=== PATIENT | male | born 1945 | race Caucasian/White ===

== ENCOUNTER 2017-12-14 10:49 | Emergency (ER) | payer MEDICARE, OTHER ==
--- NOTE | 2017-12-14 11:51 | ED PDOC ---
HPI: Hypertension/Hypotension Time Seen by Provider: 12/14/17 11:10 Chief Complaint (Nursing): High Blood Pressure Chief Complaint (Provider): High Blood Pressure History Per: Patient History/Exam Limitations: no limitations Onset/Duration Of Symptoms: Days (x 2) Current Symptoms Are (Timing): Still Present Quality Of Symptoms: Asymptomatic Exacerbating Factor(s): Pos: Recent Change In Medication Additional Complaint(s): 72 year old male with history of prostate cancer and HTN presents to the ED with high blood pressure since last night. Patient reports that he recently switched to new blood pressure medication, Losartan, and claims that his bp went too low so he took two pills of his original medication as well as aspirin and a garlic pill. At home, his bp was 210/118. He is already scheduled for a cardiac stress test and had a echocardiogram done, but does not have the results. He denies chest pain, difficulty breathing and headache. PMD: Dr. Parth TOSCANO Past Medical History Reviewed: Historical Data, Nursing Documentation, Vital Signs Vital Signs: Last Vital Signs Temp 98.0 F 12/14/17 10:55 Pulse 85 12/14/17 11:11 Resp 16 12/14/17 11:11 BP 159/101 H 12/14/17 11:11 Pulse Ox 99 12/14/17 10:55 - Medical History PMH: HTN, Hypercholesterolemia - Surgical History Surgical History: No Surg Hx - Family History Family History: States: Unknown Family Hx - Home Medications Home Medications: Ambulatory Orders Medication Instructions Recorded Losartan [Cozaar] 50 mg PO Q12 10/09/15 Aspirin [Ecotrin] 81 mg PO HS 12/14/17 Clopidogrel [Plavix] 75 mg PO DAILY 12/14/17 Garlic [Odor Free Garlic-X] 1 tab PO DAILY 12/14/17 Milk Thistle [Milk Thistle] 1 cap PO DAILY 12/14/17 Multivitamin [Multi-Vitamin Daily] 1 tab PO DAILY 12/14/17 [place]-3/Dha/Epa/Fish Oil [[place]-3 1,200 mg PO HS 12/14/17 Fish Oil 1,200 mg Sfgl] [place]-3/Dha/Epa/Fish Oil [[place]-3 2,400 mg PO DAILY 12/14/17 Fish Oil 1,200 mg Sfgl] Zolpidem [Ambien] 10 mg PO HS PRN 12/14/17 - Allergies Allergies/Adverse Reactions: Allergies Allergy/AdvReac Type Severity Reaction Status Date / Time No Known Allergies Allergy Verified 10/09/15 06:23 Review of Systems ROS Statement: Except As Marked, All Systems Reviewed And Found Negative Constitutional: Positive for: Other (high blood pressure ) Cardiovascular: Negative for: Chest Pain Respiratory: Negative for: Shortness of Breath Neurological: Negative for: Headache Physical Exam - Reviewed Nursing Documentation Reviewed: Yes Vital Signs Reviewed: Yes - Physical Exam Appears: Positive for: Non-toxic, No Acute Distress Head Exam: Positive for: ATRAUMATIC, NORMAL INSPECTION, NORMOCEPHALIC Skin: Positive for: Normal Color, Warm, Dry Eye Exam: Positive for: Normal appearance Neck: Positive for: Normal, Painless ROM, Supple Cardiovascular/Chest: Positive for: Regular Rate, Rhythm. Negative for: Murmur Respiratory: Positive for: Normal Breath Sounds. Negative for: Respiratory Distress Gastrointestinal/Abdominal: Positive for: Normal Exam, Soft Extremity: Positive for: Normal ROM. Negative for: Deformity Neurologic/Psych: Positive for: Alert, Oriented. Negative for: Motor/Sensory Deficits - Laboratory Results Result Diagrams: 12/14/17 12:00 12/14/17 12:00 - ECG O2 Sat by Pulse Oximetry: 99 (RA) Pulse Ox Interpretation: Normal Medical Decision Making Medical Decision Making: Time: 11:40 Impression: high blood pressure Initial Plan: --CBC --CMP --Clonidine .[address] Leal was alerted. After clonidine, he has transiently low blood pressure. Time: 14:53 --NS IV 1,000 mls/hr Time: 15:33 --Patient reports improvement of symptoms. Time; 16:37 --Patient request copy of labs before he leaves. He is stable and will be discharged home. p stable with normal gait. Return to the ED if symptoms persist or worsen. Follow up with Dr. Leal in 1-2 days. discusced plan with dr leal, he agrees. Scribe Attestation: Documented by Cyndee Perkins, acting as a scribe for Ravindra Murdock MD Provider Scribe Attestation: All medical record entries made by the Scribe were at my direction and personally dictated by me. I have reviewed the chart and agree that the record accurately reflects my personal performance of the history, physical exam, medical decision making, and the department course for this patient. I have also personally directed, reviewed, and agree with the discharge instructions and disposition. Disposition - Clinical Impression Clinical Impression: Hypertension - Patient ED Disposition Is Patient to be Admitted: No Counseled Patient/Family Regarding: Diagnosis, Need For Followup - Disposition Disposition: Routine/Home Disposition Time: 12:45 Condition: IMPROVED Additional Instructions: follow up with Dr Leal in 1-2 days return to the ED with any worsening or concerning symptoms Instructions: High Blood Pressure (DC) Forms: [employer] (Urdu)
[2017-12-14 12:19] LABS: BASO % 0.5 % (0.0-2.0); EOS % 0.2 % (0.0-4.0); HEMOGLOBIN 15.4 g/dL (12.0-18.0); LYMPH % 15.4 % (20.0-40.0); MEAN CORPUSCULAR HEMOGLOBIN 31.6 pg (27.0-31.0); MEAN CORPUSCULAR HGB CONC 34.7 g/dL (33.0-37.0); MEAN PLATELET VOLUME 8.5 fl (7.2-11.7); MONO # 0.6 K/uL (0.0-0.8); MONO % 8.9 % (0.0-10.0); NEUT # 4.8 K/uL (1.8-7.0); NRBC % 0.1 % (0.0-0.0); RBC 4.86 Mil/uL (4.40-5.90); RED CELL DISTRIBUTION WIDTH 13.5 % (11.5-14.5); WHITE BLOOD COUNT 6.4 K/uL (4.8-10.8)
[2017-12-14 12:21] LABS: ALB/GLOB RATIO 1.3 (1.0-2.1); ALT/SGPT 50 U/L (21-72); AST/SGOT 29 U/L (17-59); BLOOD UREA NITROGEN 18 mg/dl (9-20); CALCIUM 9.2 mg/dL (8.4-10.2); GFR AFRICAN-AMERICAN > 60; GFR NON-AFRICAN AMERICAN 59
[2017-12-14 13:07] VITALS: RESP 18
[2017-12-14] MEDS: Sodium Chloride 0.9% 1,000 ML IV STA ×2 (14:20→15:50)
[2017-12-14] MEDS ORDERED: Sodium Chloride 0.9% 1,000 ML IV STA (14:43)
[2017-12-14 15:33] VITALS: O2SAT 99
[2017-12-14 16:57] VITALS: BP 133/74; PULSE 71; TEMP 97.9
== END 2017-12-14 16:57 | disposition home or self-care (01) ==
LOC: H.ER 10:49
DX: I10 Essential (primary) hypertension (principal); E78.00 Pure hypercholesterolemia, unspecified; Z79.82 Long term (current) use of aspirin; Z85.46 Personal history of malignant neoplasm of prostate
CPT/HCPCS: 80053; 85025; 96360; 96361; 99285; J7030

== ENCOUNTER 2018-01-14 08:43 | Emergency (ER) | payer MEDICARE, OTHER ==
[2018-01-14 08:49] VITALS: BMI 19.4
[2018-01-14] MEDS ORDERED: Sodium Chloride 0.9% 500 ML IV STA (09:19)
--- NOTE | 2018-01-14 09:25 | ED PDOC ---
HPI: Hypertension/Hypotension Time Seen by Provider: 01/14/18 09:04 Chief Complaint (Nursing): High Blood Pressure Chief Complaint (Provider): High blood pressure History Per: Patient History/Exam Limitations: no limitations Onset/Duration Of Symptoms: Days (today) Additional Complaint(s): Pt. states his bp was high at home so he took his usual losartan and took 1 pill of amlodipine. He takes amlodipine as needed for high bp. He takes xanax 2x a day, but has not taken it today. Pt. denies any symptoms with the high blood pressure. No chest pain, dyspnea, weakness, dizziness, numbness, tingles , fever, cough, nausea, vomit, abd pain. No headache or dizziness. Got worried about bp being high, so he came in. Past Medical History Reviewed: Nursing Documentation, Vital Signs Vital Signs: Last Vital Signs Temp 98.1 F 01/14/18 08:49 Pulse 128 H 01/14/18 08:49 Resp 17 01/14/18 08:49 BP 140/96 H 01/14/18 08:49 Pulse Ox - Medical History PMH: HTN - Family History Family History: States: Unknown Family Hx - Living Arrangements Living Arrangements: With Family - Social History Alcohol: None Drugs: Denies - Home Medications Home Medications: Ambulatory Orders Medication Instructions Recorded Losartan [Cozaar] 50 mg PO Q12 10/09/15 Aspirin [Ecotrin] 81 mg PO HS 12/14/17 Clopidogrel [Plavix] 75 mg PO DAILY 12/14/17 Garlic [Odor Free Garlic-X] 1 tab PO DAILY 12/14/17 Milk Thistle [Milk Thistle] 1 cap PO DAILY 12/14/17 Multivitamin [Multi-Vitamin Daily] 1 tab PO DAILY 12/14/17 [place]-3/Dha/Epa/Fish Oil [[place]-3 1,200 mg PO HS 12/14/17 Fish Oil 1,200 mg Sfgl] [place]-3/Dha/Epa/Fish Oil [[place]-3 2,400 mg PO DAILY 12/14/17 Fish Oil 1,200 mg Sfgl] Zolpidem [Ambien] 10 mg PO HS PRN 12/14/17 - Allergies Allergies/Adverse Reactions: Allergies Allergy/AdvReac Type Severity Reaction Status Date / Time No Known Allergies Allergy Verified 10/09/15 06:23 Review of Systems ROS Statement: Except As Marked, All Systems Reviewed And Found Negative Physical Exam - Reviewed Nursing Documentation Reviewed: Yes Vital Signs Reviewed: Yes - Physical Exam Appears: Positive for: Well, Non-toxic, No Acute Distress Head Exam: Positive for: ATRAUMATIC, NORMAL INSPECTION, NORMOCEPHALIC Skin: Positive for: Normal Color, Warm, DRY Eye Exam: Positive for: EOMI, Normal appearance, PERRL ENT: Positive for: Normal ENT Inspection Neck: Positive for: Normal, Painless ROM Cardiovascular/Chest: Positive for: Regular Rate, Rhythm Respiratory: Positive for: CNT, Normal Breath Sounds Gastrointestinal/Abdominal: Positive for: Normal Exam, Soft. Negative for: Tenderness Back: Positive for: Normal Inspection. Negative for: L CVA Tenderness, R CVA Tenderness Extremity: Positive for: Normal ROM. Negative for: Tenderness, Pedal Edema Neurologic/Psych: Positive for: Alert, grinder operator II-XII, Oriented. Negative for: Motor/Sensory Deficits, Facial Droop - Laboratory Results Result Diagrams: 01/14/18 10:31 01/14/18 10:31 Interpretation Of Abn Labs: no acute - ECG ECG: Positive for: Interpreted By Me, Viewed By Me ECG Rhythm: Positive for: Normal QRS, Normal ST Segment, Sinus Rhythm - Progress ED Course And Treament: 926: BP improved in triage. Pt. tachy, likely related to not taking xanax. Will give xanax and monitor pt. 1234: Stable. AAOx3. Pain free. Tolerated PO. FU with pcp. BP maintained. HR 80. Disposition - Clinical Impression Clinical Impression: HTN (hypertension) - Patient ED Disposition Is Patient to be Admitted: Yes Counseled Patient/Family Regarding: Studies Performed, Diagnosis, Need For Followup - Disposition Referrals: [facility] [Outside] - 01/17/18 Disposition: Routine/Home Disposition Time: 12:35 Condition: STABLE Additional Instructions: Return if not better in 3 days. Instructions: High Blood Pressure in Adults Forms: [facility] (Somali)
[2018-01-14 09:27] VITALS: RESP 19; TEMP 97; O2SAT 98
[2018-01-14 10:36] LABS: BASO % 0.4 % (0.0-2.0); EOS % 0.2 % (0.0-4.0); HEMOGLOBIN 16.9 g/dL (12.0-18.0); LYMPH # 0.9 K/uL (1.0-4.3); LYMPH % 12.3 % (20.0-40.0); MEAN CELL VOLUME 92.1 fl (80.0-94.0); MEAN CORPUSCULAR HEMOGLOBIN 31.1 pg (27.0-31.0); MEAN CORPUSCULAR HGB CONC 33.7 g/dL (33.0-37.0); MEAN PLATELET VOLUME 8.2 fl (7.2-11.7); MONO # 0.5 K/uL (0.0-0.8); MONO % 6.8 % (0.0-10.0); NEUT # 5.8 K/uL (1.8-7.0); NEUT % 80.3 % (50.0-75.0); NRBC % 0.2 % (0.0-0.0); RBC 5.45 Mil/uL (4.40-5.90); RED CELL DISTRIBUTION WIDTH 13.5 % (11.5-14.5); WHITE BLOOD COUNT 7.2 K/uL (4.8-10.8)
[2018-01-14 10:49] LABS: ALB/GLOB RATIO 1.3 (1.0-2.1); ALBUMIN 4.4 g/dL (3.5-5.0); ALT/SGPT 47 U/L (21-72); AST/SGOT 32 U/L (17-59); BLOOD UREA NITROGEN 18 mg/dl (9-20); CALCIUM 9.2 mg/dL (8.4-10.2); GFR AFRICAN-AMERICAN > 60; GFR NON-AFRICAN AMERICAN 59
[2018-01-14 12:57] VITALS: PULSE 78
[2018-01-14 12:58] VITALS: BP 128/90
--- NOTE | 2018-01-17 14:01 | CARD ---
APPROVED REPORT Date of service: 01/14/2018 EKG Measurement Heart [id number] <Conclusion> Normal sinus rhythm Normal ECG
== END 2018-01-14 13:06 | disposition home or self-care (01) ==
LOC: H.ER 08:43
DX: I10 Essential (primary) hypertension (principal)
CPT/HCPCS: 80053; 84484; 85025; 93005; 99284; J7040